=== PATIENT | female | born 1965 | race Caucasian/White ===

== ENCOUNTER 2022-01-20 21:28 | Emergency (ER) | payer MEDICAID, SELFPAY ==
[2022-01-20 21:31] VITALS: BP 135/78; PULSE 70; RESP 18; TEMP 36.8; O2SAT 98; BMI 27.4
[2022-01-20 21:41] VITALS: BMI 27.4
--- NOTE | 2022-01-20 21:42 | XR_ITS ---
PROCEDURE INFORMATION: Exam: XR Left Shoulder Exam date and time: 01/20/2022 9:52 PM Age: 56 years old Clinical indication: Injury or trauma; Blunt trauma (contusions or hematomas); Shoulder; Left; Patient HX: Fall off horse TECHNIQUE: Imaging protocol: XR Left shoulder. Views: 2 or more views. COMPARISON: No relevant prior studies available. FINDINGS: Bones/joints: There is abnormal widening of the acromioclavicular joint with superior subluxation of the distal clavicle. Findings are compatible with a grade 3 AC separation, and concerning for coracoacromial ligament disruption. Soft tissues: Normal. IMPRESSION: Grade 3 AC separation with probable coracoacromial ligament disruption.
--- NOTE | 2022-01-20 21:42 | XR_ITS ---
PROCEDURE INFORMATION: Exam: XR Left Ribs with PA Chest Exam date and time: 01/20/2022 9:56 PM Age: 56 years old Clinical indication: Injury or trauma; Rib area, left side; Blunt trauma; Patient HX: Fall off horse TECHNIQUE: Imaging protocol: XR Left ribs with PA chest. Views: 3 views COMPARISON: CR XR SHOULDER LT MIN 2V 01/20/2022 9:52 PM FINDINGS: Lungs: Unremarkable. No consolidation. Pleural spaces: Unremarkable. No pleural effusion. No pneumothorax. Heart/Mediastinum: Unremarkable. No cardiomegaly. Bones/joints: Unremarkable. IMPRESSION: No displaced rib fractures are seen, but there is limited plain film sensitivity for nondisplaced fractures. Regardless, there is no evidence of pneumothorax, pulmonary parenchymal contusion, or pleural effusion.
--- NOTE | 2022-01-20 21:59 | [facility].EDGENADL ---
ED Disposition Clinical Impression: AC separation, type 3 Qualifiers: Encounter type: initial encounter Laterality: left Qualified Code(s): S43.102A - Unspecified dislocation of left acromioclavicular joint, initial encounter Rib fractures Qualifiers: Encounter type: initial encounter Fracture type: closed Laterality: left Qualified Code(s): S22.42XA - Multiple fractures of ribs, left side, initial encounter for closed fracture Disposition: Home, Self-Care Condition on Discharge: Good Additional Instructions: Use the incentive spirometer 2-3 times per hour while awake and use the sling to restrict mobility of the left upper extremity until you follow-up with orthopedics. Use Tylenol and ibuprofen for pain with Percocet for breakthrough pain. Take note of the Tylenol amount in each Percocet which is 325 mg with your total dose for the day of Tylenol. Do not drive or operate machinery while using the medication for pain. Prescriptions: Oxycodone HCl/Acetaminophen [Percocet 5/325mg tablet] 1 tab PO Q6H PRN 3 Days #12 tab PRN Reason: Moderate To Severe Pain Transmission Status: Received by [id number] Referrals: Edison Castro MD [Primary Care Provider] - - Critical Care Critical Care Time: No Attestation: On 01/20/22, the high probability of a clinically significant, sudden or life threatening deterioration of the following system(s) required my full and direct attention, intervention and personal management. The time I documented below is in addition to time spent performing reported procedures but includes the following listed in this critical care notation. Medical Decision Making - Medical Records Medical records reviewed: Yes: I reviewed the patient's medical records. - Arie Inquiry Pt receiving controlled substance: No Vital Signs: 01/20/22 21:31 01/20/22 23:41 Temperature 98.2 F 98.2 F Temperature Source Oral Oral Pulse Rate 72 Pulse Rate [Right] 70 Respiratory Rate 18 19 Blood Pressure 125/75 Blood Pressure [Right Arm] 135/78 Blood Pressure Mean [Right Arm] 97 02 Sat by Pulse Oximetry 98 Oxygen Delivery Method Room Air Orders (Tests/Meds): ED MEDICATIONS Discontinued Medications Generic Name Dose Route Start Last Admin Trade Name Freq PRN Reason Stop Dose Admin Oxycodone/Acetaminophen 1 each 01/20/22 23:29 01/20/22 23:40 Oxycodone 7.5mg W/Apap 325mg Tablet PO 01/20/22 23:30 1 each ONCE ONE Administration Medical Decision Narrative: 56-year-old female who was bucked from a horse. She has a subtle deformity to the AC joint concerning for separation or clavicular fracture. Tenderness of the left chest suspicious for rib fractures. Xray demonstrates grade 3 AC joint separation that will be followed up with orthopedics. CT of the chest demonstrates 3 nondisplaced rib fractures on the left chest. Pt given percocet 7mg for pain and will be discharged with conservative management instructions in good condition. General Adult HPI - General Chief complaint: Fall Stated complaint: 01/20@1930 left shoulder, rib injury Time Seen by Provider: 01/20/22 21:59 Mode of Arrival: Ambulatory Limitations: No Limitations Description of Symptoms (Recalled from ER Triage Doc. by RN): pt states was riding her horse and fall off landing on lt side. pt denies hitting head, any LOC. pt c/o lt shoulder and rib pain - History of Present Illness HPI narrative: 56-year-old female who fell from a horse the horse was standing still at the time and bucked her off. She landed on her left side is having pain over the left shoulder and left chest wall. Denies head trauma denies LOC no neck pain no numbness or weakness to extremity has been ambulatory since the fall. Pain is 6 out of 10 at this time. Worse with movement. No pain medicine prior to arrival happened approximately an hour before arrival. - Related Data Previous Rx's Medication Instructions Recorded
--- NOTE | 2022-01-20 22:40 | CT_ITS ---
PROCEDURE INFORMATION: Exam: CT Chest Without Contrast; Diagnostic Exam date and time: 01/20/2022 10:47 PM Age: 56 years old Clinical indication: Injury or trauma; Fall; Blunt trauma (contusions or hematomas); Additional info: Left chest wall pain/ fall from horse TECHNIQUE: Imaging protocol: Diagnostic computed tomography of the chest without contrast. Radiation optimization: All CT scans at this facility use at least one of these dose optimization techniques: automated exposure control; mA and/or kV adjustment per patient size (includes targeted exams where dose is matched to clinical indication); or iterative reconstruction. COMPARISON: CR XR RIBS LT MIN 3V W CXR1V 01/20/2022 9:56 PM FINDINGS: Lungs: Unremarkable. No consolidation. No masses. Pleural spaces: Unremarkable. No pneumothorax. No pleural effusion. Heart: No visible coronary artery calcification. No cardiomegaly. No pericardial effusion. Lymph nodes: Unremarkable. No enlarged lymph nodes. Vasculature: Unremarkable. No aortic aneurysm. Bones/joints: Left AC joint appears to have been reduced compared to the prior. There are very subtle nondisplaced buckle fractures of the left 3rd, 4th, and 5th ribs. There appear to be healing fractures of the left lateral 8th and 9th ribs, age indeterminate. Right ribs appear normal and intact. There is no evidence of thoracic spine fracture. Soft tissues: Unremarkable. No abnormality demonstrated in the imaged upper abdomen. IMPRESSION: 1. There are nondisplaced rib fractures of the left 3rd through 5th ribs. There is no evidence of pulmonary parenchymal contusion or pneumothorax. 2. Healing fractures of the left 8th and 9th ribs are noted correlate with any other recent trauma.
[2022-01-20 23:41] VITALS: BP 125/75; PULSE 72; RESP 19; TEMP 36.8; O2SAT 97
== END 2022-01-21 00:22 | disposition home or self-care (01) ==
PROVIDERS: Emergency Provider Student in an Organized Health Care Education/Training Program; PCP Family Medicine
DX: S43.102A Unspecified dislocation of left acromioclavicular joint, initial encounter (principal); S22.42XA Multiple fractures of ribs, left side, initial encounter for closed fracture; S20.302A Unspecified superficial injuries of left front wall of thorax, initial encounter; V80.010A Animal-rider injured by fall from or being thrown from horse in noncollision accident, initial encounter
CPT/HCPCS: 71101; 71250; 73030; 99285